=== PATIENT | female | born 1950 | race Caucasian/White ===

== ENCOUNTER 2017-06-19 11:39 | Emergency (ER) | payer OTHER ==
[2017-06-19] MEDS ORDERED: 0.9 % SODIUM CHLORIDE 500 ML IV ONE (12:11)
[2017-06-19] MEDS ORDERED: ONDANSETRON HCL/PF 4 MG/ 2ML VIAL IVP ONE ×2 (12:12→14:42)
[2017-06-19] MEDS ORDERED: HYDROmorphone HCL/PF 1 MG/ML DISP.SYRIN IVP ONE (12:48)
--- NOTE | 2017-06-19 12:52 | ED Physician Documentation ---
General Adult - HISTORIAN Historian: patient - HPI Stated Complaint: abdominal pain Chief Complaint: General Adult Onset: days ago Timing: still present Severity: moderate Further Comments: yes (Pt is a 67 yo female with lower abd pain, n/v. Pt had diarrhea last week, but this seemed to improve and then recur. Pt saw no blood in bm's or in emesis. Pt has had only water BM's.) - ROS CONST: weakness EYES/ENT: none CVS/RESP: none GI/: abdominal pain, vomiting, nausea, diarrhea MS/SKIN/LYMPH: none - PAST HX Past History: other (Anemia, Asthma, CHF, depression, DM, GERD, HLD, HTN) Allergies/Adverse Reactions: Allergies Allergy/AdvReac Type Severity Reaction Status Date / Time No Known Allergies Allergy Verified 11/23/14 16:45 Home Medications: Ambulatory Orders Medication Instructions Recorded Albuterol Sulfate [Ventolin] 2 mg PO BID 11/23/14 Cimetidine [Tagamet] 800 mg PO DAILY 11/23/14 Citalopram Hydrobromide [Celexa] 40 mg PO DAILY 11/23/14 Cyclobenzaprine HCl [Flexeril] 10 mg PO QD 11/23/14 Diclofenac Sodium [Voltaren] 75 mg PO BID 11/23/14 Ferrous Sulfate 5 gr MC BID 11/23/14 Furosemide [Lasix] 40 mg PO DAILY 11/23/14 Losartan/Hydrochlorothiazide 1 each PO DAILY 11/23/14 [Hyzaar 100-12.5 Tablet] Lovastatin 20 mg PO DAILY 11/23/14 Metformin HCl [Glucophage] [place] [address] 11/23/14 Ranitidine HCl [Zantac] 300 mg PO DAILY 11/23/14 - SOCIAL HX Smoking History: non-smoker - FAMILY HX Family History: No - VITAL SIGNS Vital Signs: Vital Signs Temp Pulse Resp BP Pulse Ox 97 F L 100 H 18 122/77 99 06/19/17 11:39 06/19/17 11:39 06/19/17 11:39 06/19/17 11:39 06/19/17 11:39 - REVIEWED ASSESSMENTS Nursing Assessment Reviewed: Yes Vitals Reviewed: Yes Progress - Progress Progress: NS 500 cc IVF Zofran 4 mg IV Dilaudid 1 mg IV Zofran 4 mg IV X-ray abdomen: Impression: Suspicious of a partial mechanical small bowel obstruction, may need CT scan of the abdomen and pelvis Mild fecal retention of the right colon CT abd/pelvis: Small anterior lower abdominal wall hernia with adhesions and possibly incarcerated small single bowel loops probably the cause of the partial mechanical small bowel obstruction. Please correlate clinically . Moderate diverticulosis of the sigmoid colon Transfer to [facility]. Dr. Lazcano. ED Results Lab/Radiology - Orders Orders: ED Orders Category Date Time Status Place IV Lock 1T Care 06/19/17 12:11 Active ABDOMEN 1 VIEW [RAD] Stat Exams 06/19/17 Ordered AMYLASE Routine Lab 06/19/17 Ordered BNP [NT-proBNP] Stat Lab 06/19/17 Ordered CBC/PLATELET/DIFF Routine Lab 06/19/17 Ordered CMP Routine Lab 06/19/17 Ordered 0.9 % Sodium Chloride [Normal Saline] 500 ml Med 06/19/17 12:11 Active IV NOW HYDROmorphone HCL/PF [Dilaudid] Med 06/19/17 12:48 Once 1 mg IVP NOW ONE Ondansetron HCl/Pf [Zofran 4 mg/2 ml] Med 06/19/17 12:12 Discontinued 4 mg IVP NOW ONE General Adult Physical Exam - PHYSICAL EXAM GENERAL APPEARANCE: moderate distress EENT: pharynx normal NECK: normal inspection, supple RESPIRATORY: no resp distress, chest non-tender, breath sounds normal CVS: reg rate & rhythm, heart sounds normal ABDOMEN: soft, no organomegaly, tenderness (moderate lower abd tenderness), decreased BS BACK: normal inspection, no CVA tenderness SKIN: warm/dry, normal color EXTREMITIES: non-tender, normal range of motion, no evidence of injury NEURO: oriented X3, motor nml, sensation nml Discharge Clincal Impression: small bowel obstruction/incarceration Elevated WBC count Qualifiers: Leukocytosis type: unspecified Qualified Code(s): D72.829 - Elevated white blood cell count, unspecified Referrals: Ree Pleitez FNP [Primary Care Provider] - Condition: Stable Disposition: 02 XFER SHT-TRM HOSP Decision to Admit: NO Decision Time: 15:13
[2017-06-19 13:06] LABS: BASOPHILS % 0.6 (0.0-1.5); EOSINOPHILS % 0.8 % (0.0-6.8); MEAN CORPUSCULAR HEMOGLOBIN 30.3 pg (28.0-34.0); MEAN CORPUSCULAR VOLUME 86.8 fl (80.0-100.0); MONOCYTES % 3.1 % (0.0-11.0); NEUTROPHILS # 16.6 # k/uL (1.4-7.7)
[2017-06-19 13:18] LABS: eGFR (African) > 60; eGFR (Non-African) > 60
[2017-06-19 15:50] VITALS: BP 101/64
--- NOTE | 2017-06-19 19:18 | Diagnostic Imaging Report ---
WHITNEY ANDINO~ [facility] [id number] [facility] [address] [place] [address]. [id number] ~ ~ ~ ~ Report Submission Date: Jun 19, 2017 1:27:36 PM CDT Patient ~ Study Name: YOANNA PEREYRA ~ Date: Jun 19, 2017 1:05:42 PM CDT ~ Modality Type: CR Gender: F ~ Description: ABDOMEN : 54 ~ Institution: [facility] Physician: WHITNEY ANDINO ~ ~ ~ ~ AP view of the abdomen Clinical history: Abdominal pain for 1 day Status post cholecystectomy with surgical clips in the right upper quadrant abdomen. Slightly dilated small bowel loops in left side of the abdomen suspicious for a partial mechanical small bowel obstruction with fecal retention right colon. Impression: Suspicious of a partial mechanical small bowel obstruction, many the CT scan of the abdomen and pelvis Mild fecal retention of the right colon ~ Electronically signed on Jun 19, 2017 1:27:36 PM CDT by: Jerald SANTIAGO
--- NOTE | 2017-06-19 19:20 | Diagnostic Imaging Report ---
WHITNEY ANDINO~ [facility] [address] [facility] [address] [place], [place]. [address] ~ ~ ~ ~ Report Submission Date: Jun 19, 2017 2:43:02 PM CDT Patient ~ Study Name: YOANNA PEREYRA ~ Date: Jun 19, 2017 2:04:30 PM CDT ~ Modality Type: CT\SR Gender: F ~ Description: CT ABD & PELVIS W/O CO : 54 ~ Institution: [facility] Physician: WHITNEY ANDINO ~ ~ ~ ~ CT of the abdomen and pelvis without IV contrast Clinical history: Abdominal pain Radiation dose DLP [id number] No visible focal hepatic or splenic pathology. Normal pancreas and adrenal glands. Moderate diverticulosis of the sigmoid colon . dilated mid small bowel loops and left side of the abdomen with an anterior abdominal wall ventral hernia with adhesions at the hernia level could be the cause for the bowel obstruction. Prior films are not available for comparison . No free fluid or free air in the abdomen or pelvis Impression: Small anterior lower abdominal wall hernia with adhesions and possibly incarcerated small single bowel loops probably the cause of the partial mechanical small bowel obstruction. Please correlate clinically . Moderate diverticulosis of the sigmoid colon ~ Electronically signed on Jun 19, 2017 2:43:02 PM CDT by: Jerald SANTIAGO
== END 2017-06-19 15:36 | disposition short-term general hospital (02) ==
LOC: ED 11:39
DX: K56.69 Other intestinal obstruction (principal); D72.829 Elevated white blood cell count, unspecified
CPT/HCPCS: 74000; 74176; 80053; 82150; 83880; 85025; J1170; J2405; J7060; 96361; 96374; 96375; 99284; S1016